=== PATIENT | male | born 1945 | race Caucasian/White ===

== ENCOUNTER → 2016-07-28 | Outpatient (CLI) | payer MEDICARE ==
[2016-07-28 10:52] LABS: MEAN CORPUSCULAR HEMOGLOBIN 30.2 pg (27.0-33.0); MEAN CORPUSCULAR HGB CONC 34.1 g/dl (32.0-36.5); MEAN CORPUSCULAR VOLUME 88.7 fl (80.0-96.0); RED CELL DISTRIBUTION WIDTH 12.7 % (11.5-14.5); WHITE BLOOD COUNT 7.4 K/mm3 (4.0-10.0)
[2016-07-28 11:16] LABS: ALBUMIN 4.1 GM/DL (3.2-5.2); ALBUMIN/GLOBULIN RATIO 1.32 (1.00-1.93); ALKALINE PHOSPHATASE 79 U/L (45-117); ALT/SGPT 44 U/L (12-78); ANION GAP 6 MEQ/L (8-16); AST/SGOT 28 U/L (15-37); BLOOD UREA NITROGEN 13 MG/DL (7-18); CARBON DIOXIDE LEVEL 30 MEQ/L (21-32); CHLORIDE LEVEL 104 MEQ/L (98-107); CREATININE FOR GFR 1.02 MG/DL (0.70-1.30); GLOMERULAR FILTRATION RATE > 60.0 (>42); GLUCOSE, FASTING 112 MG/DL (83-110); POTASSIUM SERUM 3.9 MEQ/L (3.5-5.1); SODIUM LEVEL 140 MEQ/L (136-145); TOTAL PROTEIN 7.2 GM/DL (6.4-8.2)
== END ==
LOC: M LAB 10:08
PROVIDERS: ATTEND Internal Medicine Gastroenterology
DX: R10.32 Left lower quadrant pain (principal); K57.30 Diverticulosis of large intestine without perforation or abscess without bleeding

== ENCOUNTER → 2016-09-08 | Outpatient (CLI) | payer OTHER ==
[~2016-09-08] MED LIST: CONRAY-43 43% 50ML VIAL (Q9960) As Ordered ONE
--- NOTE | 2016-09-08 12:45 | REP ---
CT ARTHROGRAM LEFT KNEE: CT imaging of the left knee performed following arthrogram procedure. Axial images are obtained followed by sagittal and coronal reconstruction images. There is a complex tear of the posterior horn of the medial meniscus as well as an extensive tear of the anterior horn of the medial meniscus. Lateral meniscus appears intact. The cruciate and collateral ligaments appear intact. The extensor mechanism is grossly intact. Mild diffuse spurring is noted. There is mild spurring is noted. There is mild chondromalacia of the patella. There is severe chondromalacia along the medial femoral condyle and medial tibial plateau with subchondral sclerosis and tiny subchondral cystic changes. Very mild global chondromalacia is seen of the lateral femoral condyle. Osseous structures appear intact. Injected contrast extends into the medial popliteal fossa. Suprapatellar plica is noted. IMPRESSION: Extensive complex tear anterior and posterior horns of the medial meniscus. 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 Diffuse spurring. Mild chondromalacia in the lateral compartment and at the patellofemoral joint. Signed by John Lance MD 09/08/2016 04:09 P
--- NOTE | 2016-09-08 19:38 | REP ---
LEFT KNEE ARTHROGRAM: The procedure was performed under the direct supervision of Dr. Lance. The benefits and risks including but not limited to pain, infection, bleeding, and anaphylaxis were explained to the patient and informed consent was obtained. The left patellofemoral joint space was localized using fluoroscopic guidance. The skin was prepped and draped in a sterile fashion. 1% Lidocaine was used a local anesthetic. Using fluoroscopic guidance a 22-gauge needle was inserted and advanced into the joint space. 40 mL of Conray-43 was injected. The needle was removed and the patient was taken to MRI for postprocedural imaging. The patient tolerated the procedure well and there were no immediate complications. 2 seconds of fluoroscopic time was utilized for this procedure. Reviewed by CHUY Shaw 09/09/2016 03:35 PEdited and Signed by John Lance MD 09/09/2016 04:50 P
== END ==
LOC: M RADPRO 09:24
PROVIDERS: ATTEND Orthopaedic Surgery
DX: S83.242A Other tear of medial meniscus, current injury, left knee, initial encounter (principal); M94.262 Chondromalacia, left knee; X58.XXXA Exposure to other specified factors, initial encounter; Y92.89 Other specified places as the place of occurrence of the external cause; Y93.89 Activity, other specified; Y99.8 Other external cause status
CPT/HCPCS: 27370; 73701; 77002; Q9960

== ENCOUNTER → 2018-04-01 | Outpatient (REF) | payer MEDICARE ==
[2018-04-01 13:16] LABS: PROTHROMBIN TIME 15.4 SECONDS (12.1-14.4)
[2018-04-01 13:17] LABS: PARTIAL THROMBOPLASTIN TIME 42.6 SECONDS (25.4-37.6)
[2018-04-01 13:33] LABS: APPEARANCE, URINE TURBID (CLEAR); BACTERIA, URINE AUTO 2+ (NEGATIVE); BILIRUBIN, URINE AUTO NEGATIVE (NEGATIVE); BLOOD, URINE BLOOD 3+ (NEGATIVE); COLOR, URINE YELLOW (YELLOW); GLUCOSE, URINE (UA) AUTO NEGATIVE (NEGATIVE); KETONE, URINE AUTO NEGATIVE (NEGATIVE); LEUKOCYTE ESTERASE, URINE AUTO NEGATIVE (NEGATIVE); MUCUS, URINE SMALL (NEGATIVE); NITRITE, URINE AUTO NEGATIVE (NEGATIVE); PROTEIN, URINE AUTO NEGATIVE (NEGATIVE); RBC, URINE AUTO 6 /HPF (0-3); SPECIFIC GRAVITY URINE AUTO 1.023 (1.002-1.035); SQUAMOUS EPITHELIAL CELL UR AU 0 /HPF (0-6); UROBILINOGEN, URINE AUTO 0.2 mg/dL (0.0-2.0); WBC, URINE AUTO 2 /HPF (0-3)
== END ==
LOC: M LAB REF 12:46
DX: Z01.810 Encounter for preprocedural cardiovascular examination (principal); I48.2 Chronic atrial fibrillation; Z51.81 Encounter for therapeutic drug level monitoring; Z79.01 Long term (current) use of anticoagulants
CPT/HCPCS: 85610

== ENCOUNTER → 2019-05-30 | Outpatient (REF) | payer MEDICARE ==
[2019-05-30 13:56] LABS: BLOOD UREA NITROGEN 12 MG/DL (7-18); CREATININE FOR GFR 1.03 MG/DL (0.70-1.30); GLOMERULAR FILTRATION RATE > 60.0 (>42)
== END ==
LOC: M LABDRAW1 12:09
PROVIDERS: ATTEND Physician Assistant Surgical
DX: M17.11 Unilateral primary osteoarthritis, right knee (principal)

== ENCOUNTER → 2020-07-24 | Outpatient (CLI) | payer MEDICARE ==
--- NOTE | 2020-07-24 09:27 | REP ---
INDICATION: ABD PAIN. COMPARISON: 02/08/2017. TECHNIQUE: Real-time sonographic evaluation of ABDOMEN performed. FINDINGS: The gallbladder demonstrates no evidence of intraluminal sludge or calculi, wall thickening or pericholecystic fluid. There is no intrahepatic or extrahepatic biliary dilatation, common bile duct measures 3 mm in maximum diameter. The liver demonstrates homogeneous echotexture with no gross mass. The pancreas demonstrates homogeneous echotexture with no gross mass. Visualization of the pancreas is limited due to overlying bowel gas. Spleen is normal in size with no intrinsic abnormality, measuring 11.7 cm in length. There is no evidence of hydronephrosis, cyst, mass, or calculus in either kidney. The right kidney measures 12.0 x 4.8 x 4.6 cm. Left renal dimensions are 11.7 x 5.1 x 5.4 cm. The abdominal aorta is normal in caliber with no aneurysm. Proximally the maximum AP diameter of the abdominal aorta is 2.1 cm, distally 1.2 cm. No free fluid is seen. IMPRESSION: Negative abdominal ultrasound. <Electronically signed by John Lance > 07/24/20 [id number]
== END ==
LOC: M RAD 08:18
PROVIDERS: ATTEND Nurse Practitioner Family
DX: R10.9 Unspecified abdominal pain (principal)

== ENCOUNTER → 2020-08-02 | Outpatient (REF) | payer MEDICARE ==
[2020-08-02 13:24] LABS: AMYLASE 44 U/L (25-115); LIPASE 193 U/L (73-393)
== END ==
LOC: M LAB REF 12:09
PROVIDERS: ATTEND Nurse Practitioner Adult Health
DX: R10.9 Unspecified abdominal pain (principal)

== ENCOUNTER → 2021-02-19 | Outpatient (REF) | payer MEDICARE ==
[2021-02-19 17:16] LABS: PERCENT SATURATION 25.9 % (19.7-50.0)
== END ==
LOC: M LAB REF 16:22
PROVIDERS: ATTEND Nurse Practitioner Adult Health
DX: M25.562 Pain in left knee (principal); R73.03 Prediabetes

== ENCOUNTER → 2021-03-04 | Outpatient (REF) | payer MEDICARE ==
[2021-03-04 17:51] LABS: APPEARANCE, URINE CLEAR (CLEAR); BACTERIA, URINE AUTO NEGATIVE (NEGATIVE); BILIRUBIN, URINE AUTO NEGATIVE (NEGATIVE); BLOOD, URINE BLOOD 1+ (NEGATIVE); COLOR, URINE YELLOW (YELLOW); GLUCOSE, URINE (UA) AUTO NEGATIVE (NEGATIVE); KETONE, URINE AUTO NEGATIVE (NEGATIVE); LEUKOCYTE ESTERASE, URINE AUTO NEGATIVE (NEGATIVE); MUCUS, URINE SMALL (NEGATIVE); NITRITE, URINE AUTO NEGATIVE (NEGATIVE); PROTEIN, URINE AUTO NEGATIVE (NEGATIVE); RBC, URINE AUTO 2 /HPF (0-3); SPECIFIC GRAVITY URINE AUTO 1.015 (1.002-1.035); SQUAMOUS EPITHELIAL CELL UR AU 0 /HPF (0-6); UROBILINOGEN, URINE AUTO 0.2 mg/dL (0.0-2.0); WBC, URINE AUTO 3 /HPF (0-3)
[2021-03-04 18:13] LABS: INR 1.12; PROTHROMBIN TIME 14.8 SECONDS (12.7-14.5)
[2021-03-04 18:14] LABS: PARTIAL THROMBOPLASTIN TIME 38.9 SECONDS (25.9-37.0)
== END ==
LOC: M LAB REF 16:47
PROVIDERS: ATTEND Nurse Practitioner Adult Health
DX: Z01.818 Encounter for other preprocedural examination (principal); Z79.01 Long term (current) use of anticoagulants

== ENCOUNTER → 2021-06-30 | Outpatient (REF) | payer MEDICARE ==
[2021-06-30 17:49] LABS: AMYLASE 45 U/L (25-115); C REACTIVE PROTEIN QUANTITATIV < 0.30 MG/DL (0.00-0.30); LIPASE 203 U/L (73-393)
== END ==
LOC: M LAB REF 16:03
PROVIDERS: ATTEND Internal Medicine
DX: R19.7 Diarrhea, unspecified (principal); R14.1 Gas pain

== ENCOUNTER → 2021-07-01 | Outpatient (REF) | payer MEDICARE | LOC: M LAB REF 09:20 | PROVIDERS: ATTEND Nurse Practitioner Family | DX: R14.1 Gas pain (principal); R19.7 Diarrhea, unspecified; R14.0 Abdominal distension (gaseous) ==

== ENCOUNTER → 2021-07-10 | Outpatient (CLI) | payer MEDICARE | LOC: M RAD 06:58 | PROVIDERS: ATTEND Internal Medicine Gastroenterology | DX: R79.89 Other specified abnormal findings of blood chemistry (principal) ==

== ENCOUNTER → 2021-07-30 | Outpatient (REF) | payer MEDICARE | LOC: M LAB REF 12:27 | PROVIDERS: ATTEND Nurse Practitioner Adult Health | DX: K86.89 Other specified diseases of pancreas (principal); R14.0 Abdominal distension (gaseous); K76.0 Fatty (change of) liver, not elsewhere classified ==

== ENCOUNTER → 2021-08-01 | Outpatient (CLI) | payer MEDICARE ==
[~2021-08-01] MED LIST changes: -CONRAY-43 43% 50ML VIAL (Q9960) As Ordered ONE; +ISOVUE-370 76% 100ML VIAL As Ordered ONE
== END ==
LOC: M RAD 15:20
PROVIDERS: ATTEND Nurse Practitioner Family
DX: K76.89 Other specified diseases of liver (principal); R14.0 Abdominal distension (gaseous); K86.89 Other specified diseases of pancreas; K76.0 Fatty (change of) liver, not elsewhere classified
CPT/HCPCS: 74177; Q9967

== ENCOUNTER → 2021-10-31 | Outpatient (REF) | payer MEDICARE ==
[2021-10-31 17:14] LABS: LIPASE 562 U/L (73-393)
[2021-10-31 17:15] LABS: VITAMIN B12 LEVEL > 2000 PG/ML (247-911)
== END ==
LOC: M LAB REF 16:48
PROVIDERS: ATTEND Nurse Practitioner Adult Health
DX: R10.84 Generalized abdominal pain (principal); R53.83 Other fatigue

== ENCOUNTER → 2021-11-05 | Outpatient (CLI) | payer MEDICARE | LOC: M WUC 10:50 | PROVIDERS: ATTEND Nurse Practitioner Adult Health | DX: R06.02 Shortness of breath (principal) ==

== ENCOUNTER → 2021-11-07 | Outpatient (REF) | payer MEDICARE | LOC: M LAB REF 16:26 | PROVIDERS: ATTEND Nurse Practitioner Adult Health | DX: I50.23 Acute on chronic systolic (congestive) heart failure (principal); E88.09 Other disorders of plasma-protein metabolism, not elsewhere classified; J98.11 Atelectasis ==

== ENCOUNTER 2021-11-12 10:56 | Inpatient (IN) | payer MEDICARE ==
[~2021-11-12] VITALS: Ht 182.9 cm; Wt 97.0 kg
[2021-11-12 12:44] LABS: VENOUS BASE EXCESS -10.6 (-2.0-2.0); VENOUS HCO3 15.2 MEQ/L (23.0-27.0); VENOUS PARTIAL PRESSURE CO2 33.9 mmHg (38.0-50.0); VENOUS PARTIAL PRESSURE O2 49.5 mmHg (30.0-50.0); VENOUS STANDARD HCO3 15.9 MEQ/L; VENOUS TOTAL CO2 16.3 MEQ/L (24.0-28.0)
[2021-11-12] MEDS ORDERED: NS 1,000 ML IV ONE (12:45)
[2021-11-12 12:49] LABS: BASO # 0.1 10^3/uL (0.0-0.2); BASO % 0.6 % (0.0-1.0); EOS % 0.2 % (0.0-3.0); HEMATOCRIT 39.6 % (42.0-52.0); HEMOGLOBIN 13.1 g/dl (13.5-17.5); LYMPH # 1.4 10^3/uL (1.5-5.0); LYMPH % 11.1 % (24.0-44.0); MEAN CORPUSCULAR HGB CONC 33.1 g/dl (32.0-36.5); MEAN CORPUSCULAR VOLUME 87.6 fl (80.0-96.0); MONO % 13.6 % (2.0-8.0); NEUTROPHILS # 9.2 10^3/uL (1.5-8.5); NEUTROPHILS % 74.2 % (36.0-66.0); PLATELET COUNT, AUTOMATED 215 10^3/uL (150-450); RED BLOOD COUNT 4.52 10^6/uL (4.30-6.10); WHITE BLOOD COUNT 12.4 10^3/uL (4.0-10.0)
[2021-11-12 13:32] LABS: MONO # 1.7 10^3/uL (0.0-0.8)
[2021-11-12 13:34] LABS: ALBUMIN 2.5 GM/DL (3.2-5.2); BILIRUBIN,DIRECT 2.1 MG/DL (0.0-0.2); BILIRUBIN,TOTAL 3.9 MG/DL (0.2-1.0); CALCIUM LEVEL 9.2 MG/DL (8.8-10.2); CREATININE FOR GFR 3.4 MG/DL (0.70-1.30); GLOMERULAR FILTRATION RATE 18.8 (>42); POTASSIUM SERUM 5.8 MEQ/L (3.5-5.1); THYROID STIMULATING HORMONE 2.81 uIU/ML (0.358-3.740); TOTAL PROTEIN 6.6 GM/DL (6.4-8.2)
[2021-11-12] MEDS ORDERED: NS 1,800 ML in IV 1 EA IV ONE (14:40)
[2021-11-12] MEDS ORDERED: cefTRIAXone SOD 2 GM in D5W MINI-BAG PLUS 50 ML IV ONE (14:40)
[2021-11-12] MEDS ORDERED: CALCIUM GLUCONATE 1,000MG/10ML VIAL (100MG/ML) (J0610) IV ONE (15:45)
[2021-11-12] MEDS ORDERED: AMLO1TAB24 PO (16:31)
[2021-11-12] MEDS ORDERED: ACET-1349 PO (16:31)
[2021-11-12] MEDS ORDERED: DIGO0.123 PO (16:31)
[2021-11-12] MEDS ORDERED: SILD20TA11 PO (16:31)
[2021-11-12] MEDS ORDERED: ATOR80TA59 PO (16:31)
[2021-11-12] MEDS ORDERED: ZENP1CAP63 PO (16:31)
[2021-11-12] MEDS ORDERED: MULT-90 PO (16:31)
[2021-11-12] MEDS ORDERED: POTA-151 PO (16:31)
[2021-11-12] MEDS ORDERED: TORS20TA2 PO (16:31)
[2021-11-12] MEDS ORDERED: ATEN100T PO (16:31)
[2021-11-12] MEDS ORDERED: ELIQ5TAB PO (16:31)
[2021-11-12] MEDS ORDERED: HOME MED LIST COMPLETE! XX SCH (16:40)
[2021-11-12] MEDS ORDERED: NS 250 ML IV ONE (18:35)
[2021-11-12 18:40] LABS: VENOUS BASE EXCESS -12.5 (-2.0-2.0); VENOUS HCO3 14.1 MEQ/L (23.0-27.0); VENOUS O2 SATURATION 63.6 % (60.0-80.0); VENOUS PARTIAL PRESSURE CO2 34.8 mmHg (38.0-50.0); VENOUS PARTIAL PRESSURE O2 35.8 mmHg (30.0-50.0); VENOUS PH 7.226 UNITS (7.330-7.430); VENOUS STANDARD HCO3 14.2 MEQ/L; VENOUS TOTAL CO2 15.2 MEQ/L (24.0-28.0)
[2021-11-12 19:14] LABS: INR 1.76; PROTHROMBIN TIME 20.9 SECONDS (12.7-14.5)
[2021-11-12 19:16] LABS: PARTIAL THROMBOPLASTIN TIME 69.7 SECONDS (25.9-37.0)
[2021-11-12] MEDS: NS 1,000 ML IV SCH (19:30)
[2021-11-12 19:39] LABS: ALBUMIN 2.3 GM/DL (3.2-5.2); BILIRUBIN,TOTAL 3.3 MG/DL (0.2-1.0); CREATININE FOR GFR 3.42 MG/DL (0.70-1.30); DIGOXIN LEVEL 1.1 NG/ML (0.5-2.0); GLOMERULAR FILTRATION RATE 18.7 (>42); POTASSIUM SERUM 6.1 MEQ/L (3.5-5.1); TOTAL PROTEIN 6.2 GM/DL (6.4-8.2)
[2021-11-12] MEDS ORDERED: DEXTROSE 50% 50 ML SYRINGE IV STA (19:58)
[2021-11-12] MEDS ORDERED: SODIUM BICARBONATE 8.4% INJ 50 ML SYRINGE IV STA (19:58)
[2021-11-12] MEDS ORDERED: HumuLIN R (REGULAR) INSULIN (NovoLIN R) **100U/ML** PER UNIT IV STA (19:58)
[2021-11-12] MEDS ORDERED: CALCIUM GLUCONATE 1,000 MG in D5W MINI-BAG PLUS 100 ML IV ONE (20:00)
[2021-11-12] MEDS ORDERED: AZITHROMYCIN INJ 500 MG, VIAL MATE ADAPTER 1 EACH in NS 250 ML IV SCH (20:00)
[2021-11-12] MEDS ORDERED: SOD POLYSTYRENE SULFONATE SUSP 15GM 60ML UD PO ONE (20:00)
[2021-11-12] MEDS ORDERED: DOXYCYCLINE HYCLATE 100MG TABLET PO SCH (21:00)
[2021-11-12 22:00] VITALS: BP 113/57
[2021-11-12] MEDS: APIXABAN 5 MG TAB (ELIQUIS) PO SCH (23:07)
[2021-11-12] MEDS ORDERED: GLUCAGON INJ 1MG VIAL SC PRN (23:20)
[2021-11-12] MEDS ORDERED: DEXTROSE 50% 50 ML SYRINGE IV PRN (23:20)
[2021-11-12] MEDS ORDERED: GLUCOSE 4GM CHEW TABLET PO PRN (23:20)
[2021-11-13] VITALS (7 sets, daily range): BP systolic 94–112; BP diastolic 54–80
[2021-11-13] MEDS ORDERED: CEFD300CAP PO (01:14)
[2021-11-13] MEDS ORDERED: HYDR2.5C54 PR (01:14)
[2021-11-13] MEDS ORDERED: ANUSOL HC CREAM 30GM PR PRN (02:20)
[2021-11-13] MEDS ORDERED: MAALOX 30 ML SUSP *UDC PO ONE (03:00)
[2021-11-13 05:08] LABS: HEMATOCRIT 38.3 % (42.0-52.0); HEMOGLOBIN 12.7 g/dl (13.5-17.5); MEAN CORPUSCULAR HEMOGLOBIN 29.2 pg (27.0-33.0); MEAN CORPUSCULAR HGB CONC 33.2 g/dl (32.0-36.5); PLATELET COUNT, AUTOMATED 195 10^3/uL (150-450); RED BLOOD COUNT 4.35 10^6/uL (4.30-6.10); WHITE BLOOD COUNT 12.1 10^3/uL (4.0-10.0)
[2021-11-13 05:44] LABS: ALBUMIN 2.4 GM/DL (3.2-5.2); BILIRUBIN,TOTAL 3.5 MG/DL (0.2-1.0); CALCIUM LEVEL 9.2 MG/DL (8.8-10.2); CREATININE FOR GFR 3.68 MG/DL (0.70-1.30); GLOMERULAR FILTRATION RATE 17.2 (>42); POTASSIUM SERUM 5.8 MEQ/L (3.5-5.1); TOTAL PROTEIN 6.3 GM/DL (6.4-8.2)
[2021-11-13] MEDS: NS 1,000 ML IV SCH (06:16)
[2021-11-13] MEDS: INSULIN LISPRO (NovoLOG) PER UNIT SC SCH ×3 (07:30→17:30)
[2021-11-13 08:06] LABS: ABG BASE EXCESS -14.1 (-2.0-2.0); ABG HCO3 10.6 MEQ/L (22.0-26.0); ABG O2 SATURATION 97.5 % (95.0-99.0); ABG PARTIAL PRESSURE CO2 22.9 mmHg (35.0-45.0); ABG STANDARD HCO3 13.7 MEQ/L (22.0-26.0); ABG TOTAL CO2 11.3 MEQ/L (23.0-31.0); ABG pH (ARTERIAL) 7.284 UNITS (7.350-7.450)
[2021-11-13] MEDS ORDERED: DIGOXIN 0.125 MG TAB PO SCH (09:00)
[2021-11-13] MEDS: DIGOXIN 0.125 MG TAB PO SCH (09:19)
[2021-11-13] MEDS: PIPERACILLIN/TAZOBACTAM SOD 3.375 GM in D5W MINI-BAG PLUS 50 ML IV SCH ×3 (09:19→20:13)
[2021-11-13] MEDS: APIXABAN 5 MG TAB (ELIQUIS) PO SCH (09:20)
[2021-11-13] MEDS ORDERED: ONDANSETRON 4MG 2ML VIAL IV PRN (11:00)
[2021-11-13] MEDS ORDERED: PATIROMER SORBITEX CALCIUM 8.4 GM POWDER PACKET (VELTASSA) PO SCH (12:00)
[2021-11-13] MEDS: NITAZOXANIDE 500 MG TAB (ALINIA) PO SCH ×2 (12:23→20:13)
[2021-11-13] MEDS: SODIUM BICARBONATE 150 MEQ in STERILE WATER LITER BAG 1,000 ML IV SCH (12:23)
[2021-11-13] MEDS ORDERED: cefTRIAXone SOD 1 GM in D5W MINI-BAG PLUS 50 ML IV SCH (14:30)
[2021-11-13 16:40] LABS: BASO % 0.2 % (0.0-1.0); LYMPH # 1.2 10^3/uL (1.5-5.0); LYMPH % 8.4 % (24.0-44.0); MONO # 1.5 10^3/uL (0.0-0.8); MONO % 10.9 % (2.0-8.0)
[2021-11-13] MEDS: LACTOBACILLUS ACIDOPHILUS CAP (BACID) PO SCH (17:36)
[2021-11-13] MEDS ORDERED: DOXYCYCLINE HYCLATE 100MG TABLET PO SCH (21:00)
[2021-11-13] MEDS ORDERED: ENOXAPARIN 100MG/1ML SYRINGE (J1650 PER 10MG) SC SCH (21:00)
[2021-11-13] MEDS ORDERED: ATORVASTATIN 20 MG TAB PO SCH (21:00)
[2021-11-13 22:05] LABS: ALBUMIN 2.2 GM/DL (3.2-5.2); BILIRUBIN,TOTAL 3.9 MG/DL (0.2-1.0); CALCIUM LEVEL 8.9 MG/DL (8.8-10.2); CREATININE FOR GFR 4.44 MG/DL (0.70-1.30); GLOMERULAR FILTRATION RATE 13.8 (>42); POTASSIUM SERUM 5.8 MEQ/L (3.5-5.1); TOTAL PROTEIN 6.4 GM/DL (6.4-8.2)
[2021-11-14] MEDS: SODIUM BICARBONATE 150 MEQ in STERILE WATER LITER BAG 1,000 ML IV SCH (00:53)
[2021-11-14] MEDS: PIPERACILLIN/TAZOBACTAM SOD 3.375 GM in D5W MINI-BAG PLUS 50 ML IV SCH ×2 (03:03→09:14)
[2021-11-14 04:00] VITALS: BP 90/50
[2021-11-14 06:32] LABS: HEMATOCRIT 36.6 % (42.0-52.0); MEAN CORPUSCULAR HEMOGLOBIN 28.8 pg (27.0-33.0); MEAN CORPUSCULAR HGB CONC 32.8 g/dl (32.0-36.5); PLATELET COUNT, AUTOMATED 193 10^3/uL (150-450); RED BLOOD COUNT 4.16 10^6/uL (4.30-6.10); WHITE BLOOD COUNT 13.7 10^3/uL (4.0-10.0)
[2021-11-14] MEDS: INSULIN LISPRO (NovoLOG) PER UNIT SC SCH (07:30)
[2021-11-14 08:09] VITALS: BP 90/52
[2021-11-14] MEDS: DIGOXIN 0.125 MG TAB PO SCH (09:00)
[2021-11-14] MEDS: LACTOBACILLUS ACIDOPHILUS CAP (BACID) PO SCH (09:14)
[2021-11-14] MEDS: NITAZOXANIDE 500 MG TAB (ALINIA) PO SCH (09:14)
[2021-11-14 09:51] LABS: ALBUMIN 2.2 GM/DL (3.2-5.2); BILIRUBIN,TOTAL 4.3 MG/DL (0.2-1.0); CALCIUM LEVEL 8.6 MG/DL (8.8-10.2); CREATININE FOR GFR 4.73 MG/DL (0.70-1.30); GLOMERULAR FILTRATION RATE 12.9 (>42); POTASSIUM SERUM 5.7 MEQ/L (3.5-5.1); TOTAL PROTEIN 5.7 GM/DL (6.4-8.2)
[2021-11-14] MEDS ORDERED: ONDANSETRON 4MG 2ML VIAL IV PRN (09:55)
[2021-11-14] MEDS ORDERED: LOPERAMIDE 2 MG CAPLET PO PRN (09:55)
[2021-11-14] MEDS ORDERED: LORazepam 2 MG/ML VIAL IV PRN (09:55)
[2021-11-14] MEDS ORDERED: ATROPINE SULFATE 1% OP SOLN 2 ML BTL SL PRN (09:55)
[2021-11-14] MEDS ORDERED: SIMETHICONE 80MG CHEW TAB PO PRN (11:40)
[2021-11-14] MEDS: LORazepam 1 MG TAB PO PRN ×2 (11:58→15:38)
[2021-11-14] MEDS: MORPHINE 2 MG/ML 1ML VIAL IV PRN ×2 (14:51→16:58)
[2021-11-14] MEDS ORDERED: MORPHINE 2 MG/ML 1ML VIAL IV ONE (16:00)
[2021-11-14] MEDS ORDERED: LORazepam 2 MG TAB PO PRN (17:10)
[2021-11-14] MEDS: MORPHINE 4 MG/ML 1ML VIAL/SYRINGE IV PRN ×2 (19:05→23:16)
[2021-11-15] MEDS: MORPHINE 4 MG/ML 1ML VIAL/SYRINGE IV PRN ×2 (06:29→10:19)
== END 2021-11-15 15:25 | disposition expired | DRG 871 ==
LOC: EDBD 10:56 → M ED 13:02 → M ED INP 17:43 → M PCU 22:04
PROVIDERS: ADMIT Internal Medicine; ATTEND Internal Medicine
DX: A41.9 Sepsis, unspecified organism (principal); K76.7 Hepatorenal syndrome; J18.9 Pneumonia, unspecified organism; N17.9 Acute kidney failure, unspecified; E87.2 Acidosis; C78.7 Secondary malignant neoplasm of liver and intrahepatic bile duct; I50.22 Chronic systolic (congestive) heart failure; K76.6 Portal hypertension; A07.2 Cryptosporidiosis; D84.9 Immunodeficiency, unspecified; R65.20 Severe sepsis without septic shock; Z51.5 Encounter for palliative care; Z66 Do not resuscitate; I25.5 Ischemic cardiomyopathy; H91.90 Unspecified hearing loss, unspecified ear; R74.01 Elevation of levels of liver transaminase levels; R16.0 Hepatomegaly, not elsewhere classified; E87.5 Hyperkalemia; R91.8 Other nonspecific abnormal finding of lung field; I48.91 Unspecified atrial fibrillation; C69.21 Malignant neoplasm of right retina; I25.10 Atherosclerotic heart disease of native coronary artery without angina pectoris; E11.9 Type 2 diabetes mellitus without complications; D64.9 Anemia, unspecified; I11.0 Hypertensive heart disease with heart failure; M19.90 Unspecified osteoarthritis, unspecified site; E86.0 Dehydration; Z86.16 Personal history of COVID-19; E78.5 Hyperlipidemia, unspecified; Z95.0 Presence of cardiac pacemaker; Z96.642 Presence of left artificial hip joint; Z79.01 Long term (current) use of anticoagulants; Z87.891 Personal history of nicotine dependence; Z79.899 Other long term (current) drug therapy